=== PATIENT | female | born 1965 | race Caucasian/White ===

== ENCOUNTER 2023-02-01 07:55 | Emergency (ER) | payer BC ==
--- OUTSIDE RECORDS SUMMARY | 2023-02-01 08:00 | XMS REPORT | Continuity of Care Document ---
:1965 Author Organization [facility] t Address [address] [facility] [address] [place] [address] Care Team Providers Name Role Phone Jake Naik Attending Clinician Unavailable Richa Danielle Attending Clinician Unavailable Li Doss Attending Clinician Unavailable Payers Payer Name Policy Type Policy Number Effective Date Expiration Date S ource Blue Cross 6 [id number] Common Spiri t Blue Shield of - [facility] Problems Condition Condition Condition Status Onset Resolution Last Treating Co mments Source Name Details Category Date Date Treatment Clinician Date [id number] Iron Problem Common deficiency Spirit anemia, - [facility] type [id number] Migraine Problem Comm on without Spirit aura and - [facility] with 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 remission [facility] [id number] Seasonal Problem Comm on allergies Spirit [facility] Mitral Mitral Problem Common valve valve Spirit prolapse prolapse [facility] Mixed Mixed Problem Common hyperlipid hyperlipid Sp calvin emia emia [facility] [id number] Alcoholism Problem Comm on Spirit [facility] [id number] Hyperglyce Problem Com mon zenia Spirit [facility] [id number] Polyarthra Problem Com mon lgia Spirit [facility] [id number] Non-intrac Problem Com mon table [facility] type [id number] Allergic Problem Comm on conjunctiv Spirit itis of - CHI both eyes [facility] [id number] Medication Problem Co mmon monitoring [facility] encounter [facility] [id number] Nicotine Problem Commo n dependence Spirit with - [facility] d nicotine product type [id number] History of Problem Co mmon alcoholism [facility] [id number] Non-season Problem Com mon al Spirit allergic - [facility], [facility] [id number] Chest Problem Common pain, [facility] unspecie - [facility] d type [facility] [id number] Tobacco Problem Commo n abuse [facility] counseling [facility] [id number] Nosebleed Problem Com mon [facility] [id number] Left leg Problem Comm on pain [facility] [id number] Right leg Problem Com mon pain [facility] [id number] Vitamin D Problem Comm on deficiency [facility] Allergies, Adverse Reactions, Alerts Allergy Allergy Status Severity Reaction(s) Onset Inactive Treating Comm ents Source Name Type Date Date Clinician Nuris Grafffis Active swelling to C ommon h h mouth [facility] aspirin aspirin Active seizures Common [facility] tramadol tramadol Active hallucinatio Common ns [facility] [id number] Drug Active Unknown Common allergy [facility] ibuprofe ibuprofe Active seizures Comm on n n [facility] [place] Active irritability Common ast ast [facility] cat cat Active Unknown Common dander dander Spirit allergen allergen - [facility] ic ic St extract extract [facility] / cat / cat Medical skin skin Center extract extract Social History Social Habit Start Date Stop Date Quantity Comments Source History of Tobacco Current Smoker Co mmon Spirit - [facility] Use [facility] Sex Assigned At Com mon [facility] Smoking Status Start Date Stop Date Source Current Smoker 2022-08-16 00:00:00 Common Spiri t [facility] Medications Ordered Filled Start Stop Current Ordering Indication Dosage Frequency Signature Comments Components Source Medication Medication Date Date Medication? Clinician (SIG) Name Name Krystyna Greenwood No Atorvastat n Calcium n Calcium 8-22 in Calcium 10 MG 10 MG 00:00: 10 MG 00 Atorvastati Atorvastati 0 No Atorvastat n Calcium n Calcium 8-22 in Calcium 10 MG 10 MG 00:00: 10 MG 00 Azithromyci Azithromyci 0 2021- No QD Azithromyc n 250 MG n 250 MG 03-27 in 250 MG 00:00: 00:00 00 :00 Azithromyci Azithromyci 0 2021- No QD Azithromyc n 250 MG n 250 MG 03-27 in 250 MG 00:00: 00:00 00 :00 Acetaminoph Acetaminoph 2021-0 No 1{table QD en-Codeine en-Codeine 2-08 t_as_ne #3 300-30 #3 300-30 00:00: eded} MG MG 00 Ondansetron Ondansetron 0 No HCl 4 MG HCl 4 MG 2-08 00:00: 00 Ondansetron Ondansetron 2021-0 No Ondansetro HCl 4 MG HCl 4 MG 2-08 n HCl 4 MG 00:00: 00 Ondansetron Ondansetron 2021-0 No Ondansetro HCl 4 MG HCl 4 MG 2-08 n HCl 4 MG 00:00: 00 Ondansetron Ondansetron 2021-0 No Ondansetro HCl 4 MG HCl 4 MG 2-08 n HCl 4 MG 00:00: 00 Ondansetron Ondansetron 2021-0 No Ondansetro HCl 4 MG HCl 4 MG 2-08 n HCl 4 MG 00:00: 00 Ondansetron Ondansetron 2021-0 No Ondansetro HCl 4 MG HCl 4 MG 2-08 n HCl 4 MG 00:00: 00 Ondansetron Ondansetron 2021-0 No Ondansetro HCl 4 MG HCl 4 MG 2-08 n HCl 4 MG 00:00: 00 Sulfamethox Sulfamethox 2021-0 2022- No 1{table BID azole-Trime azole-Trime 2-08 02-18 t} thoprim thoprim 00:00: 00:00 800-160 MG 800-160 MG 00 :00 Ondansetron Ondansetron 2020-0 Yes Li 1 tablet Common HCl HCl 4-07 Millender as needed Spiri t 00:00: for - CHI 00 nausea/vom [facility] Ondansetron Ondansetron 2020-0 No Ondansetro HCl 4 MG HCl 4 MG 4-07 n HCl 4 MG 00:00: 00 Ondansetron Ondansetron 2020-0 No HCl 4 MG HCl 4 MG 4-07 00:00: 00 Ondansetron Ondansetron 2020-0 No Ondansetro HCl 4 MG HCl 4 MG 4-07 n HCl 4 MG 00:00: 00 Ondansetron Ondansetron 2020-0 No Ondansetro HCl 4 MG HCl 4 MG 4-07 n HCl 4 MG 00:00: 00 Ondansetron Ondansetron 2020-0 No Ondansetro HCl 4 MG HCl 4 MG 4-07 n HCl 4 MG 00:00: 00 Ondansetron Ondansetron 2020-0 No Ondansetro HCl 4 MG HCl 4 MG 4-07 n HCl 4 MG 00:00: 00 Ondansetron Ondansetron 2020-0 No Ondansetro HCl 4 MG HCl 4 MG 4-07 n HCl 4 MG 00:00: 00 Ondansetron Ondansetron 2020-0 No Ondansetro HCl 4 MG HCl 4 MG 4-07 n HCl 4 MG 00:00: 00 Ondansetron Ondansetron 2020-0 No Ondansetro HCl 4 MG HCl 4 MG 4-07 n HCl 4 MG 00:00: 00 Fish Oil Fish Oil 2019-0 2020- No Li 1 capsule Common 4-07 01-02 Mill[facility] Spirit 00:00: 00:00 - [facility]I 00 :00 [facility] Cromolymalick Drapermolyn 2019-0 Yes Li 1 drop Co mmon Sodium Sodium 4-30 Millender into Spirit 00:00: affected - CHI 00 eye(s) [facility] Cromolyn Cromolyn 2019-0 No QID Cromolyn Sodium 4 % Sodium 4 % 4-30 Sodium 4 % 00:00: 00 Cromolyn Cromolyn 2019-0 No QID Sodium 4 % Sodium 4 % 4-30 00:00: 00 Cromolyn Cromolyn 2019-0 No QID Cromolyn Sodium 4 % Sodium 4 % 4-30 Sodium 4 % 00:00: 00 Cromolyn Cromolyn 2019-0 No QID Cromolyn Sodium 4 % Sodium 4 % 4-30 Sodium 4 % 00:00: 00 Cromolyn Cromolyn 2019-0 No QID Cromolyn Sodium 4 % Sodium 4 % 4-30 Sodium 4 % 00:00: 00 Cromolyn Cromolyn 2019-0 No QID Cromolyn Sodium 4 % Sodium 4 % 4-30 Sodium 4 % 00:00: 00 Cromolyn Cromolyn 2019-0 No QID Cromolyn Sodium 4 % Sodium 4 % 4-30 Sodium 4 % 00:00: 00 Cromolyn Cromolyn 2019-0 No QID Cromolyn Sodium 4 % Sodium 4 % 4-30 Sodium 4 % 00:00: 00 Butalbital- Butalbital- Yes Li 1 capsule Common APAP-Caff-C APAP-Caff-C Millender as needed Spirit od od - [facility] Benadryl Benadryl Yes Li 1 tablet Co mmon Allergy Allergy Millender as needed [facility] Fluticasone Fluticasone Yes Li 1 spray in Common Propionate Propionate Millender each Spirit nostril [facility] Fish Oil Fish Oil Yes Li 1 capsule C ommon Millender [facility] B12 Fast B12 Fast Yes Li as Common Dissolve Dissolve Millender directed [facility] Loratadine Loratadine Yes Li [address] [facility] Potassium Potassium Yes Li not Comm on Millender defined [facility] Pravastatin Pravastatin Yes Li 1 tablet Common Sodium Sodium Millender for high Sp calvin cholestero - [facility] l/triglyce [facility] Potassium Potassium Yes Li 1 packet Common Chloride Chloride Millender with food [facility] Vitamin C Vitamin C Yes Li 1 tablet Common Mill[facility] Spirit [facility] Vitamin E Vitamin E Yes Li [address] [facility] Vitamin E Vitamin E No 1{capsu Vitamin E 1000 UNIT 1000 UNIT le} 1000 UNIT Vitamin C Vitamin C No 1{table Vitamin C 1000 MG 1000 MG t} 1000 MG B12 Fast B12 Fast No B12 Fast Dissolve Dissolve Dissolve 5000 MCG 5000 MCG 5000 MCG Fish Oil Fish Oil No 1{capsu Fish Oil 1200 MG 1200 MG le} 1200 MG Loratadine Loratadine No 1{table QD Loratadine 10 MG 10 MG t} 10 MG Acetaminoph Acetaminoph No 1{table QD Acetaminop en-Codeine en-Codeine t_as_ne hen-Codein #3 300-30 #3 300-30 eded} e #3 MG MG 300-30 MG Butalbital- Butalbital- No 1{capsu Butalbital APAP-Caff-C APAP-Caff-C le_as_n -APAP-Caff od od eeded} -Cod 50-325-40-3 50-325-40-3 50-325-40- 0 MG 0 MG 30 MG Fluticasone Fluticasone No 1{spray QD Fluticason Propionate Propionate _in_eac e 50 MCG/ACT 50 MCG/ACT h_nostr Propionate il} 50 MCG/ACT Fish Oil Fish Oil No 1{capsu Fish Oil 1200 MG 1200 MG le} 1200 MG Benadryl Benadryl No 1{table TID Benadryl Allergy 25 Allergy 25 t_as_ne Allergy 25 MG MG eded} MG Pravastatin Pravastatin No Pravastati Sodium 10 Sodium 10 n Sodium MG MG 10 MG Cyclobenzap Cyclobenzap No QD Cyclobenza rine HCl 10 rine HCl 10 elizabeth HCl MG MG 10 MG Potassium Potassium No Potassium Potassium Potassium No 1{packe Potassium Chloride 20 Chloride 20 t_with_ Chloride MEQ MEQ food} 20 MEQ Benadryl Benadryl No 1{table TID Allergy 25 Allergy 25 t_as_ne MG MG eded} Fish Oil Fish Oil No 1{capsu 1200 MG 1200 MG le} Fluticasone Fluticasone No 1{spray QD Propionate Propionate _in_eac 50 MCG/ACT 50 MCG/ACT h_nostr il} Cyclobenzap Cyclobenzap No QD rine HCl 10 rine HCl 10 MG MG Loratadine Loratadine No 1{table QD 10 MG 10 MG t} Vitamin C Vitamin C No 1{table 1000 MG 1000 MG t} B12 Fast B12 Fast No Dissolve Dissolve 5000 MCG 5000 MCG Potassium Potassium No 1{packe Chloride 20 Chloride 20 t_with_ MEQ MEQ food} Pravastatin Pravastatin No Sodium 10 Sodium 10 MG MG Stool Stool No Softener Softener Butalbital- Butalbital- No 1{capsu APAP-Caff-C APAP-Caff-C le_as_n od od eeded} 50-325-40-3 50-325-40-3 0 MG 0 MG Pravastatin Pravastatin No Sodium 10 Sodium 10 MG MG Vitamin E Vitamin E No 1{capsu 1000 UNIT 1000 UNIT le} Fish Oil Fish Oil No 1{capsu 1200 MG 1200 MG le} Potassium Potassium No Fish Oil Fish Oil No 1{capsu Fish Oil 1200 MG 1200 MG le} 1200 MG Benadryl Benadryl No 1{table TID Benadryl Allergy 25 Allergy 25 t_as_ne Allergy 25 MG MG eded} MG Pravastatin Pravastatin No Pravastati Sodium 10 Sodium 10 n Sodium MG MG 10 MG Fish Oil Fish Oil No 1{capsu Fish Oil 1200 MG 1200 MG le} 1200 MG Loratadine Loratadine No 1{table QD Loratadine 10 MG 10 MG t} 10 MG Fluticasone Fluticasone No 1{spray QD Fluticason Propionate Propionate _in_eac e 50 MCG/ACT 50 MCG/ACT h_nostr Propionate il} 50 MCG/ACT Stool Stool No Stool Softener Softener Softener B12 Fast B12 Fast No B12 Fast Dissolve Dissolve Dissolve 5000 MCG 5000 MCG 5000 MCG Acetaminoph Acetaminoph No 1{table QD Acetaminop en-Codeine en-Codeine t_as_ne hen-Codein #3 300-30 #3 300-30 eded} e #3 MG MG 300-30 MG Vitamin C Vitamin C No 1{table Vitamin C 1000 MG 1000 MG t} 1000 MG Potassium Potassium No Potassium Pravastatin Pravastatin No Pravastati Sodium 10 Sodium 10 n Sodium MG MG 10 MG Cyclobenzap Cyclobenzap No QD Cyclobenza rine HCl 10 rine HCl 10 elizabeth HCl MG MG 10 MG Butalbital- Butalbital- No 1{capsu Butalbital APAP-Caff-C APAP-Caff-C le_as_n -APAP-Caff od od eeded} -Cod 50-325-40-3 50-325-40-3 50-325-40- 0 MG 0 MG 30 MG Vitamin E Vitamin E No 1{capsu Vitamin E 1000 UNIT 1000 UNIT le} 1000 UNIT Potassium Potassium No 1{packe Potassium Chloride 20 Chloride 20 t_with_ Chloride MEQ MEQ food} 20 MEQ Potassium Potassium No Potassium Pravastatin Pravastatin No Pravastati Sodium 10 Sodium 10 n Sodium MG MG 10 MG Pravastatin Pravastatin No Pravastati Sodium 10 Sodium 10 n Sodium MG MG 10 MG Potassium Potassium No 1{packe Potassium Chloride 20 Chloride 20 t_with_ Chloride MEQ MEQ food} 20 MEQ Fluticasone Fluticasone No 1{spray QD Fluticason Propionate Propionate _in_eac e 50 MCG/ACT 50 MCG/ACT h_nostr Propionate il} 50 MCG/ACT Acetaminoph Acetaminoph No 1{table QD Acetaminop en-Codeine en-Codeine t_as_ne hen-Codein #3 300-30 #3 300-30 eded} e #3 MG MG 300-30 MG Cyclobenzap Cyclobenzap No QD Cyclobenza rine HCl 10 rine HCl 10 elizabeth HCl MG MG 10 MG Stool Stool No Stool Softener Softener Softener Vitamin C Vitamin C No 1{table Vitamin C 1000 MG 1000 MG t} 1000 MG Vitamin E Vitamin E No 1{capsu Vitamin E 1000 UNIT 1000 UNIT le} 1000 UNIT Butalbital- Butalbital- No 1{capsu Butalbital APAP-Caff-C APAP-Caff-C le_as_n -APAP-Caff od od eeded} -Cod 50-325-40-3 50-325-40-3 50-325-40- 0 MG 0 MG 30 MG B12 Fast B12 Fast No B12 Fast Dissolve Dissolve Dissolve 5000 MCG 5000 MCG 5000 MCG Loratadine Loratadine No 1{table QD Loratadine 10 MG 10 MG t} 10 MG Fish Oil Fish Oil No 1{capsu Fish Oil 1200 MG 1200 MG le} 1200 MG Fish Oil Fish Oil No 1{capsu Fish Oil 1200 MG 1200 MG le} 1200 MG Benadryl Benadryl No 1{table TID Benadryl Allergy 25 Allergy 25 t_as_ne Allergy 25 MG MG eded} MG Potassium Potassium No Potassium Pravastatin Pravastatin No Pravastati Sodium 10 Sodium 10 n Sodium MG MG 10 MG Pravastatin Pravastatin No Pravastati Sodium 10 Sodium 10 n Sodium MG MG 10 MG Potassium Potassium No 1{packe Potassium Chloride 20 Chloride 20 t_with_ Chloride MEQ MEQ food} 20 MEQ Fluticasone Fluticasone No 1{spray QD Fluticason Propionate Propionate _in_eac e 50 MCG/ACT 50 MCG/ACT h_nostr Propionate il} 50 MCG/ACT Acetaminoph Acetaminoph No 1{table QD Acetaminop en-Codeine en-Codeine t_as_ne hen-Codein #3 300-30 #3 300-30 eded} e #3 MG MG 300-30 MG Cyclobenzap Cyclobenzap No QD Cyclobenza rine HCl 10 rine HCl 10 elizabeth HCl MG MG 10 MG Stool Stool No Stool Softener Softener Softener Vitamin C Vitamin C No 1{table Vitamin C 1000 MG 1000 MG t} 1000 MG Vitamin E Vitamin E No 1{capsu Vitamin E 1000 UNIT 1000 UNIT le} 1000 UNIT Butalbital- Butalbital- No 1{capsu Butalbital APAP-Caff-C APAP-Caff-C le_as_n -APAP-Caff od od eeded} -Cod 50-325-40-3 50-325-40-3 50-325-40- 0 MG 0 MG 30 MG B12 Fast B12 Fast No B12 Fast Dissolve Dissolve Dissolve 5000 MCG 5000 MCG 5000 MCG Loratadine Loratadine No 1{table QD Loratadine 10 MG 10 MG t} 10 MG Fish Oil Fish Oil No 1{capsu Fish Oil 1200 MG 1200 MG le} 1200 MG Fish Oil Fish Oil No 1{capsu Fish Oil 1200 MG 1200 MG le} 1200 MG Benadryl Benadryl No 1{table TID Benadryl Allergy 25 Allergy 25 t_as_ne Allergy 25 MG MG eded} MG Fluticasone Fluticasone No 1{spray QD Fluticason Propionate Propionate _in_eac e 50 MCG/ACT 50 MCG/ACT h_nostr Propionate il} 50 MCG/ACT Stool Stool No Stool Softener Softener Softener B12 Fast B12 Fast No B12 Fast Dissolve Dissolve Dissolve 5000 MCG 5000 MCG 5000 MCG Iron Iron No Iron Potassium Potassium No 1{packe Potassium Chloride 20 Chloride 20 t_with_ Chloride MEQ MEQ food} 20 MEQ Fish Oil Fish Oil No 1{capsu Fish Oil 1200 MG 1200 MG le} 1200 MG Butalbital- Butalbital- No 1{capsu Butalbital APAP-Caff-C APAP-Caff-C le_as_n -APAP-Caff od od eeded} -Cod 50-325-40-3 50-325-40-3 50-325-40- 0 MG 0 MG 30 MG Vitamin E Vitamin E No 1{capsu Vitamin E 1000 UNIT 1000 UNIT le} 1000 UNIT Benadryl Benadryl No 1{table TID Benadryl Allergy 25 Allergy 25 t_as_ne Allergy 25 MG MG eded} MG Potassium Potassium No Potassium Acetaminoph Acetaminoph No 1{table QD Acetaminop en-Codeine en-Codeine t_as_ne hen-Codein #3 300-30 #3 300-30 eded} e #3 MG MG 300-30 MG Vitamin C Vitamin C No 1{table Vitamin C 1000 MG 1000 MG t} 1000 MG Cyclobenzap Cyclobenzap No QD Cyclobenza rine HCl 10 rine HCl 10 elizabeth HCl MG MG 10 MG Pravastatin Pravastatin No Pravastati Sodium 10 Sodium 10 n Sodium MG MG 10 MG Loratadine Loratadine No 1{table QD Loratadine 10 MG 10 MG t} 10 MG Fish Oil Fish Oil No 1{capsu Fish Oil 1200 MG 1200 MG le} 1200 MG Fish Oil Fish Oil No 1{capsu Fish Oil 1200 MG 1200 MG le} 1200 MG Butalbital- Butalbital- No 1{capsu Butalbital APAP-Caff-C APAP-Caff-C le_as_n -APAP-Caff od od eeded} -Cod 50-325-40-3 50-325-40-3 50-325-40- 0 MG 0 MG 30 MG Vitamin C Vitamin C No 1{table Vitamin C 1000 MG 1000 MG t} 1000 MG Potassium Potassium No Potassium Pravastatin Pravastatin No Pravastati Sodium 10 Sodium 10 n Sodium MG MG 10 MG Iron Iron No Iron Stool Stool No Stool Softener Softener Softener Vitamin E Vitamin E No 1{capsu Vitamin E 1000 UNIT 1000 UNIT le} 1000 UNIT Potassium Potassium No 1{packe Potassium Chloride 20 Chloride 20 t_with_ Chloride MEQ MEQ food} 20 MEQ Acetaminoph Acetaminoph No 1{table QD Acetaminop en-Codeine en-Codeine t_as_ne hen-Codein #3 300-30 #3 300-30 eded} e #3 MG MG 300-30 MG Fluticasone Fluticasone No 1{spray QD Fluticason Propionate Propionate _in_eac e 50 MCG/ACT 50 MCG/ACT h_nostr Propionate il} 50 MCG/ACT Loratadine Loratadine No 1{table QD Loratadine 10 MG 10 MG t} 10 MG Fish Oil Fish Oil No 1{capsu Fish Oil 1200 MG 1200 MG le} 1200 MG Benadryl Benadryl No 1{table TID Benadryl Allergy 25 Allergy 25 t_as_ne Allergy 25 MG MG eded} MG B12 Fast B12 Fast No B12 Fast Dissolve Dissolve Dissolve 5000 MCG 5000 MCG 5000 MCG Cyclobenzap Cyclobenzap No QD Cyclobenza rine HCl 10 rine HCl 10 elizabeth HCl MG MG 10 MG Potassium Potassium No 1{packe Potassium Chloride 20 Chloride 20 t_with_ Chloride MEQ MEQ food} 20 MEQ Loratadine Loratadine No 1{table QD Loratadine 10 MG 10 MG t} 10 MG Atorvastati Atorvastati No Atorvastat n Calcium n Calcium in Calcium 10 MG 10 MG 10 MG Cyclobenzap Cyclobenzap No QD Cyclobenza rine HCl 10 rine HCl 10 elizabeth HCl MG MG 10 MG Iron Iron No Iron B12 Fast B12 Fast No B12 Fast Dissolve Dissolve Dissolve 5000 MCG 5000 MCG 5000 MCG Cromolyn Cromolyn No Cromolyn Sodium 4 % Sodium 4 % Sodium 4 % Fish Oil Fish Oil No 1{capsu Fish Oil 1200 MG 1200 MG le} 1200 MG Pravastatin Pravastatin No Pravastati Sodium 10 Sodium 10 n Sodium MG MG 10 MG Vitamin E Vitamin E No 1{capsu Vitamin E 1000 UNIT 1000 UNIT le} 1000 UNIT Potassium Potassium No Potassium Acetaminoph Acetaminoph No 1{table QD Acetaminop en-Codeine en-Codeine t_as_ne hen-Codein #3 300-30 #3 300-30 eded} e #3 MG MG 300-30 MG Fluticasone Fluticasone No 1{spray QD Fluticason Propionate Propionate _in_eac e 50 MCG/ACT 50 MCG/ACT h_nostr Propionate il} 50 MCG/ACT Benadryl Benadryl No 1{table TID Benadryl Allergy 25 Allergy 25 t_as_ne Allergy 25 MG MG eded} MG Butalbital- Butalbital- No 1{capsu Butalbital APAP-Caff-C APAP-Caff-C le_as_n -APAP-Caff od od eeded} -Cod 50-325-40-3 50-325-40-3 50-325-40- 0 MG 0 MG 30 MG Vitamin C Vitamin C No 1{table Vitamin C 1000 MG 1000 MG t} 1000 MG Stool Stool No Stool Softener Softener Softener Fish Oil Fish Oil No 1{capsu Fish Oil 1200 MG 1200 MG le} 1200 MG Vitamin E Vitamin E No 1{capsu Vitamin E 1000 UNIT 1000 UNIT le} 1000 UNIT Vitamin C Vitamin C No 1{table Vitamin C 1000 MG 1000 MG t} 1000 MG B12 Fast B12 Fast No B12 Fast Dissolve Dissolve Dissolve 5000 MCG 5000 MCG 5000 MCG Fish Oil Fish Oil No 1{capsu Fish Oil 1200 MG 1200 MG le} 1200 MG Loratadine Loratadine No 1{table QD Loratadine 10 MG 10 MG t} 10 MG Acetaminoph Acetaminoph No 1{table QD Acetaminop en-Codeine en-Codeine t_as_ne hen-Codein #3 300-30 #3 300-30 eded} e #3 MG MG 300-30 MG Butalbital- Butalbital- No 1{capsu Butalbital APAP-Caff-C APAP-Caff-C le_as_n -APAP-Caff od od eeded} -Cod 50-325-40-3 50-325-40-3 50-325-40- 0 MG 0 MG 30 MG Fluticasone Fluticasone No 1{spray QD Fluticason Propionate Propionate _in_eac e 50 MCG/ACT 50 MCG/ACT h_nostr Propionate il} 50 MCG/ACT Fish Oil Fish Oil No 1{capsu Fish Oil 1200 MG 1200 MG le} 1200 MG Benadryl Benadryl No 1{table TID Benadryl Allergy 25 Allergy 25 t_as_ne Allergy 25 MG MG eded} MG Pravastatin Pravastatin No Pravastati Sodium 10 Sodium 10 n Sodium MG MG 10 MG Cyclobenzap Cyclobenzap No QD Cyclobenza rine HCl 10 rine HCl 10 elizabeth HCl MG MG 10 MG Potassium Potassium No Potassium Potassium Potassium No 1{packe Potassium Chloride 20 Chloride 20 t_with_ Chloride MEQ MEQ food} 20 MEQ Immunizations Ordered Immunization Filled Immunization Date Status Commen ts Source Name Name Adacel (Tdap) Adacel (Tdap) 2018-10-01 Completed Common S pirit 10:19:00 - [facility] Adacel (Tdap) Adacel (Tdap) 2018-10-01 Completed Common S pirit 10:19:00 - [facility] Adacel (Tdap) Adacel (Tdap) 2018-10-01 Completed Common S pirit 10:19:00 - [facility] Adacel (Tdap) Adacel (Tdap) 2018-10-01 Completed Common S pirit 10:19:00 - [facility] Adacel (Tdap) Adacel (Tdap) 2018-10-01 Completed Common S pirit 10:19:00 - [facility] Adacel (Tdap) Adacel (Tdap) 2018-10-01 Completed Common S pirit 10:19:00 - [facility] Adacel (Tdap) Adacel (Tdap) 2018-10-01 Completed Common S pirit 10:19:00 - [facility] Adacel (Tdap) Adacel (Tdap) 2018-10-01 Completed Common S pirit 10:19:00 - [facility] Adacel (Tdap) Adacel (Tdap) 2018-10-01 Completed Common S pirit 10:19:00 - [facility] TDAP > 7 TDAP > 7 2018-10-01 Completed Common Spirit Years-Adacel Years-Adacel 00:00:00 - [facility] Vital Signs Vital Name Observation Time Observation Value Comments Source height 2022-08-19 08:50:00 64 [in_i] Common S pirit - [facility] weight 2022-08-19 08:50:00 167.1 [lb_av] Common [facility] temperature 2022-08-19 08:50:00 97.2 [degF] Common [facility] bmi 2022-08-19 08:50:00 28.68 kg/m2 Common S [facility] oximetry 2022-08-19 08:50:00 98 % [facility] 2022-08-19 08:50:00 17 /min Comm on [facility] blood pressure 2022-08-19 08:50:00 117 mm[Hg] Common [facility] - systolic [facility] blood pressure 2022-08-19 08:50:00 71 mm[Hg] Common [facility] - diastolic [facility] height 2022-05-13 09:10:00 64 [in_i] Common [facility] weight 2022-05-13 09:10:00 161.4 [lb_av] Common [facility] temperature 2022-05-13 09:10:00 97.2 [degF] Common [facility] bmi 2022-05-13 09:10:00 27.7 kg/m2 Common S [facility] oximetry 2022-05-13 09:10:00 95 % Common [facility] respiratory rate 2022-05-13 09:10:00 16 /min Comm on [facility] blood pressure 2022-05-13 09:10:00 130 mm[Hg] Common [facility] - systolic [facility] blood pressure 2022-05-13 09:10:00 68 mm[Hg] Common Spirit - diastolic [facility] height 2022-03-27 10:40:00 64 [in_i] [facility] 2022-03-27 10:40:00 166.1 [lb_av] [facility] temperature 2022-03-27 10:40:00 100.4 [degF] [facility] bmi 2022-03-27 10:40:00 28.51 kg/m2 [facility] height 2022-01-31 08:40:00 64 [in_i] Common [facility] weight 2022-01-31 08:40:00 166.1 [lb_av] Common [facility] temperature 2022-01-31 08:40:00 98.1 [degF] Common [facility] bmi 2022-01-31 08:40:00 28.51 kg/m2 Common [facility] oximetry 2022-01-31 08:40:00 99 % Common [facility] respiratory rate 2022-01-31 08:40:00 18 /min Comm on [facility] blood pressure 2022-01-31 08:40:00 137 mm[Hg] Common [facility] - systolic [facility] blood pressure 2022-01-31 08:40:00 74 mm[Hg] Common [facility] - diastolic [facility] height 2021-10-30 08:10:00 64 [in_i] Common [facility] weight 2021-10-30 08:10:00 163.4 [lb_av] [facility] temperature 2021-10-30 08:10:00 98.1 [degF] Common [facility] bmi 2021-10-30 08:10:00 28.04 kg/m2 Common S [facility] oximetry 2021-10-30 08:10:00 100 % Common [facility] respiratory rate 2021-10-30 08:10:00 18 /min Comm on [facility] blood pressure 2021-10-30 08:10:00 130 mm[Hg] Common [facility] - systolic [facility] blood pressure 2021-10-30 08:10:00 79 mm[Hg] Common [facility] - diastolic [facility] height 2021-06-26 08:20:00 64 [in_i] [facility] weight 2021-06-26 08:20:00 162.7 [lb_av] Common [facility] temperature 2021-06-26 08:20:00 97.7 [degF] [facility] bmi 2021-06-26 08:20:00 27.92 kg/m2 [facility] oximetry 2021-06-26 08:20:00 98 % [facility] respiratory rate 2021-06-26 08:20:00 16 /min Comm on [facility] blood pressure 2021-06-26 08:20:00 131 mm[Hg] Common [facility] systolic [facility] blood pressure 2021-06-26 08:20:00 78 mm[Hg] Common [facility] diastolic [facility] Procedures This patient has no known procedures. Encounters Start End Encounter Admission Attending Care Care Encounter Source Date/Time Date/Time Type Type Clinicians Facility Department ID 2022-11-12 Outpatient Naik, STLMLC STLMLC [id number] Common 08:05:[id number] [facility] 2022-08-14 Outpatient Naik, STLMLC STLMLC [id number] Common 07:46:[id number] [facility] 2022-03-27 Outpatient Naik, STLMLC STLMLC [id number] Common 13:24:[id number] [facility] 2021-10-17 Outpatient Naik, STLMLC STLMLC [id number] Common 13:07:[id number] [facility] 2021-10-17 Outpatient Naik, STLMLC STLMLC [id number] Common 13:06:[id number] [facility] 2021-10-17 Outpatient Naik, STLMLC STLMLC [id number] Common 13:00:[id number] [facility] 2021-10-17 Outpatient Naik, STLMLC STLMLC [id number] Common 12:32:[id number] [facility] 2021-10-17 Outpatient Naik, STLMLC STLMLC [id number] Common 12:20:[id number] [facility] 2021-10-17 Outpatient Ovalo, STLMLC STLMLC [id number] Common 12:17:[id number] [facility] 2021-10-17 Outpatient Millender, STLMLC STLMLC [id number] Common 11:52:[id number] [facility] 2021-10-17 Outpatient Millender, STLMLC STLMLC [id number] Common 11:00:[id number] [facility] 2021-10-17 Outpatient Millender, STLMLC STLMLC [id number] Common 10:59:[id number] [facility] 2021-10-17 Outpatient Millender, STLMLC STLMLC [id number] Common 10:58:[id number] [facility] 2022-08-19 2022-08-19 OFFICE STLMLC STLMLC [id number] Co mmon 00:00:00 00:00:00 VISIT [facility] PT - CHI LEVEL 4 [facility] 2022-05-15 2022-05-15 (TEL) STLMLC STLMLC [id number] Co mmon 00:00:00 00:00:00 [facility] 2022-05-13 2022-05-13 OFFICE STLMLC STLMLC [id number] Co mmon 00:00:00 00:00:00 VISIT [facility] ESTAB PT - CHI LEVEL 4 [facility] 2022-03-27 2022-03-27 OL DIG E/M STLMLC STLMLC [id number] Common 00:00:00 00:00:00 [facility] 11-20 Spir it MIN [facility] 2022-03-27 2022-03-27 (TEL) STLMLC STLMLC [id number] Co mmon 00:00:00 00:00:00 [facility] 2022-01-31 2022-01-31 OFFICE STLMLC STLMLC [id number] Co mmon 00:00:00 00:00:00 VISIT [facility] ESTAB PT - CHI LEVEL 4 [facility] 2021-10-30 2021-10-30 (WELLNESS) STLMLC STLMLC [id number] Common 00:00:00 00:00:00 Wellness Spiri t Visit [facility] 2021-06-26 2021-06-26 OFFICE STLMLC STLMLC [id number] Co mmon 00:00:00 00:00:00 VISIT [facility] ESTAB PT - CHI LEVEL 4 [facility] 2021-06-26 2021-06-26 (TEL) STLMLC STLMLC [id number] Co mmon 00:00:00 00:00:00 [facility] 2021-05-02 2021-05-02 Outpatient STLMLC STLMLC [id number] Common 00:00:00 00:00:00 [facility] 2021-02-13 2021-02-13 Outpatient STLMLC STLMLC [id number] Common 00:00:00 00:00:00 [facility] 2021-02-05 2021-02-05 Outpatient STLMLC STLMLC [id number] Common 00:00:00 00:00:00 [facility] 2021-01-26 2021-01-26 Outpatient STLMLC STLMLC [id number] Common 00:00:00 00:00:00 [facility] 2020-12-04 2020-12-04 Outpatient STLMLC STLMLC [id number] Common 00:00:00 00:00:00 [facility] 2020-11-23 2020-11-23 Outpatient STLMLC STLMLC [id number] Common 00:00:00 00:00:00 [facility] 2020-11-14 2020-11-14 Outpatient STLMLC STLMLC [id number] Common 00:00:00 00:00:00 [facility] 2020-10-05 2020-10-05 Outpatient STLMLC STLMLC [id number] Common 00:00:00 00:00:00 [facility] 2020-09-25 2020-09-25 Outpatient STLMLC STLMLC [id number] Common 00:00:00 00:00:00 [facility] 2020-07-17 2020-07-17 Outpatient STLMLC STLMLC [id number] Common 00:00:00 00:00:00 [facility] 2020-06-30 2020-06-30 Outpatient STLMLC STLMLC [id number] Common 00:00:00 00:00:00 [facility] 2020-04-16 2020-04-16 [facility] [id number] Common 22:55:00 22:55:[address] [facility] 2020-03-31 2020-03-31 [facility] [id number] Common 08:20:00 08:20:[address] [facility] 2020-03-21 2020-03-21 [facility] [id number] Common 09:01:00 09:01:[address] [facility] 2019-12-28 2019-12-28 [facility] [id number] Common 15:45:00 15:45:[address] [facility] 2019-12-25 2019-12-25 [facility] [id number] Common 21:51:00 21:51:[address] [facility] 2019-12-24 2019-12-24 [facility] [id number] Common 15:00:00 15:00:[address] [facility] 2019-11-11 2019-11-11 [facility] [id number] Common 08:40:00 08:40:[address] [facility] 2019-10-03 2019-10-03 [facility] [id number] Common 22:25:00 22:25:[address] [facility] 2019-09-30 2019-09-30 [facility] [id number] Common 08:30:00 08:30:[address] [facility] 2019-04-23 2019-04-23 [facility] [id number] Common 10:56:00 10:56:[address] [facility] 2019-03-30 2019-03-30 [facility] [id number] Common 08:30:00 08:30:[address] [facility] 2019-01-22 2019-01-22 [facility] [id number] Common 09:00:00 09:00:[address] [facility] 2019-01-21 2019-01-21 [facility] [id number] Common 14:52:00 14:52:[address] [facility] 2019-01-19 2019-01-19 [facility] [id number] Common 13:34:00 13:34:[address] [facility] 2019-01-19 2019-01-19 [facility] [id number] Common 09:30:00 09:30:[address] [facility] 2018-10-01 2018-10-01 [facility] [id number] Common 08:45:00 08:45:[address] [facility] Results Test Description Test Time Test Comments Results Result Comments Source STREP Joanne ORNELAS 2022-03-27 00:00:00 Test Item Value Reference Range Interpretation Comme nts Result (test code = 52330-6) Negative POC, COVID 19 Antigen + Flu by SofiaPOC, COVID 19 Antigen + Flu by Gregoria
[2023-02-01] MEDS ORDERED: LEVALBUTEROL 1.25 MG/3 ML NEB ONE (08:27)
[2023-02-01] MEDS ORDERED: ACETAMINOPHEN 325 MG TABLET ONE (08:27)
--- NOTE | 2023-02-01 09:17 | RAD REPORT ---
EXAM DESCRIPTION: RAD - Chest Pa And Lat (2 Views) - 02/01/2023 9:10 am CLINICAL HISTORY: COUGH COMPARISON: <Comparisons> FINDINGS: Lines: None. Lungs: No evidence of edema or pneumonia. Pleural: No significant pleural effusions or pneumothorax. Cardiac: The heart size is within normal limits. Mediastinum: Within normal limits. Bones: No acute fractures. Other: None IMPRESSION: No acute cardiopulmonary disease.
--- NOTE | 2023-02-01 09:59 | ER ---
Nurse's Notes [facility] Name: Yoselin Santos Age: 57 yrs Sex: Female : 1965 Arrival Date: 02/01/2023 Time: 07:55 Bed 14 Private MD: Diagnosis: Otitis media, unspecified, bilateral;Cough;Nasal congestion;Acute pharyngitis, unspecified Presentation: 02/01 08:07 Chief complaint: Cough, congestion, sore throat, malaise, and subjective fever x 1 hb week, dizziness and SOB today. On Zithromax day 4. Coronavirus screen: Client presents with at least one sign or symptom that may indicate coronavirus-19. Provider contacted for isolation considerations. Ebola Screen: No symptoms or risks identified at this time. Initial Sepsis Screen: Does the patient meet any 2 criteria? No. Patient's initial sepsis screen is negative. Does the patient have a suspected source of infection? No. Patient's initial sepsis screen is negative. Risk Assessment: Do you want to hurt yourself or someone else? Patient reports no desire to harm self or others. Onset of symptoms was January 25, 2023. 08:07 Method Of Arrival: Ambulatory hb 08:07 Acuity: ANA PAULA 3 hb Historical: - Allergies: 08:09 SHELLFISH; hb 08:09 Aspirin; hb 08:09 Ibuprofen; hb 08:09 nitrofurantoin; hb 08:09 peppermint; hb - Immunization history:: Adult Immunizations up to date. - Social history:: Smoking status: . Screenin:08 [facility] ED Fall Risk Assessment (Adult) History of falling in the last 3 months, kc6 including since admission No falls in past 3 months (0 pts) Confusion or Disorientation No (0 pts) Intoxicated or Sedated No (0 pts) Impaired Gait No (0 pts) Mobility Assist Device Used No (0 pt) Altered Elimination No (0 pt) Score/Fall Risk Level 0 - 2 = Low Risk Oriented to surroundings, Maintained a safe environment, Educated pt \T\ family on fall prevention, incl call for assistance when getting out of bed, Assessed \T\ reinforced patient's understanding of fall precautions, Provided non-skid footwear, Used ambulatory aids as needed (educated on \T\ assisted with). Abuse screen: Denies threats or abuse. Denies injuries from another. Nutritional screening: No deficits noted. Tuberculosis screening: No symptoms or risk factors identified. Assessment: 08:08 General: Appears in no apparent distress. comfortable, ill, Behavior is calm, kc6 cooperative, appropriate for age. Pain: Complains of pain in right ear. Neuro: Beatty Agitation-Sedation Scale (RASS): 0 - Alert and Calm Level of Consciousness is awake, alert, obeys commands, Oriented to person, place, time, situation, Appropriate for age. Cardiovascular: Heart tones S1 S2 present Capillary refill < 3 seconds Rhythm is sinus tachycardia Chest pain is denied. Respiratory: Reports shortness of breath cough that is Airway is patent Trachea midline Respiratory effort is even, unlabored, Respiratory pattern is regular, symmetrical. GI: No signs and/or symptoms were reported involving the gastrointestinal system. : No signs and/or symptoms were reported regarding the genitourinary system. EENT: Reports nasal congestion. Derm: No signs and/or symptoms reported regarding the dermatologic system. Skin is intact, Skin is pink, warm \T\ dry. Musculoskeletal: No signs and/or symptoms reported regarding the musculoskeletal system. Circulation, motion, and sensation intact. Capillary refill < 3 seconds, Range of motion: intact in all extremities. 09:08 Reassessment: Patient appears in no apparent distress at this time. No changes from kc6 previously documented assessment. Patient and/or family updated on plan of care and expected duration. Pain level reassessed. Patient is alert, oriented x 3, equal unlabored respirations, skin warm/dry/pink. 10:05 Reassessment: Patient appears in no apparent distress at this time. No changes from kc6 previously documented assessment. Patient and/or family updated on plan of care and expected duration. Pain level reassessed. Patient is alert, oriented x 3, equal unlabored respirations, skin warm/dry/pink. Vital Signs: 08:07 BP 155 / 92; Pulse 110; Resp 20; Temp 100(O); Pulse Ox 98% ; Weight 79.38 kg; Height 5 hb ft. 4 in. ; Pain 5/10; 09:10 BP 125 / 64; Pulse 93; Resp 18 S; Pulse Ox 97% on R/A; kc6 09:55 Temp 99.5(O); kc6 08:07 Body Mass Index 30.04 (79.38 kg, 162.56 cm) hb 08:07 Pain Scale: Adult hb ED Course: 07:56 Patient arrived in ED. ts1 08:02 Chel Naidu, RN is Primary Nurse. kc6 08:03 Romulo Contreras PA is PHCP. cp 08:03 Toño Harrell MD is Attending Physician. cp 08:08 Patient has correct armband on for positive identification. Bed in low position. Call kc6 light in reach. Side rails up X 1. 08:09 Triage completed. hb 08:09 Arm band placed on. hb 09:12 XRAY Chest Pa And Lat (2 Views) In Process Unspecified. EDMS 10:05 No provider procedures requiring assistance completed. Patient did not have IV access kc6 during this emergency room visit. Administered Medications: 08:30 Drug: Levalbuterol Inhalation 1.25 mg Route: Inhalation; kc6 09:30 Follow up: Response: No adverse reaction kc6 08:30 Drug: Acetaminophen PO 650 mg Route: PO; kc6 09:59 Follow up: Response: No adverse reaction; Temperature is decreased kc6 Medication: 10:05 VIS not applicable for this client. kc6 Outcome: 09:58 Discharge ordered by . cp 10:05 Discharged to home ambulatory. kc6 10:05 Condition: stable 10:05 Discharge instructions given to patient, Instructed on discharge instructions, follow up and referral plans. medication usage, Demonstrated understanding of instructions, follow-up care, medications, Prescriptions given X 3. 10:05 Patient left the ED. kc6 Signatures: Dispatcher [employer] EDMS Romulo Contreras PA PA cp Baxter, Heather, RN RN Chel Naidu RN RN kc6 Vivian Kilgore PAS PAS ts1
--- NOTE | 2023-02-01 09:59 | EDPHYS ---
Physician Documentation [facility] Name: Yoselin Santos Age: 57 yrs Sex: Female : 1965 Arrival Date: 02/01/2023 Time: 07:55 Bed 14 Private MD: ED Physician Toño Harrell HPI: 02/01 08:20 This 57 yrs old Female presents to ER via Ambulatory with complaints of Chest cp Congestion, Dizziness. 08:20 The patient or guardian reports cough, chest congestion, difficulty breathing. cp 08:20 Onset: The symptoms/episode began/occurred 1 week(s) ago, and became worse yesterday. cp 08:20 Associated signs and symptoms: Pertinent positives: earache, fever, sore throat, cp dizziness, Pertinent negatives: chest pain, diarrhea, vomiting. Severity of symptoms: in the emergency department the symptoms are unchanged despite home interventions. 08:20 Patient reports having recent [facility] visit in which she was prescribed Z-ak, cough cp medicine. Historical: - Allergies: 08:09 SHELLFISH; hb 08:09 Aspirin; hb 08:09 Ibuprofen; hb 08:09 nitrofurantoin; hb 08:09 peppermint; hb - Immunization history:: Adult Immunizations up to date. - Social history:: Smoking status: . ROS: 08:30 Constitutional: Positive for body aches, Negative for fever, poor PO intake. cp 08:30 Eyes: Negative for injury, pain, redness, and discharge. cp 08:30 ENT: Positive for ear pain, sore throat, Negative for drainage from ear(s), difficulty swallowing, difficulty handling secretions. 08:30 Cardiovascular: Negative for chest pain, edema, palpitations. 08:30 Respiratory: Positive for cough, "sounds productive", shortness of breath. 08:30 Abdomen/GI: Negative for abdominal pain, vomiting, diarrhea, constipation. 08:30 Back: Negative for pain at rest, pain with movement. 08:30 : Negative for urinary symptoms. 08:30 Skin: Negative for rash. 08:30 Neuro: Positive for dizziness, Negative for altered mental status, headache, loss of consciousness, syncope, weakness. Exam: 08:33 Constitutional: The patient appears in no acute distress, alert, awake, cp non-diaphoretic, non-toxic, well developed, well nourished. 08:33 Head/Face: Normocephalic, atraumatic. cp 08:33 Eyes: Periorbital structures: appear normal, Conjunctiva: normal, no exudate, no injection, Sclera: no appreciated abnormality, Lids and lashes: appear normal, bilaterally. 08:33 ENT: External ear(s): are unremarkable, Ear canal(s): cerumen impaction, that is moderate, occluding the right ear canal, TM's: erythema, that is mild, bilaterally, Nose: is normal, Mouth: Lips: moist, Oral mucosa: moist, Posterior pharynx: Airway: no evidence of obstruction, patent, Tonsils: with erythema, no enlargement, no exudate, swelling, is not appreciated, erythema, that is mild, exudate, is not appreciated. 08:33 Neck: ROM/movement: is normal, is supple, without pain, no range of motions limitations, no meningismus, Lymph nodes: no appreciated lymphadenopathy. 08:33 Chest/axilla: Inspection: normal. 08:33 Cardiovascular: Rate: tachycardic, Rhythm: regular, Edema: is not appreciated, JVD: is not appreciated. 08:33 Respiratory: the patient does not display signs of respiratory distress, Respirations: normal, no use of accessory muscles, no retractions, labored breathing, is not present, Breath sounds: bronchial sounds, that are mild, are heard diffusely, decreased breath sounds, are not appreciated, stridor, is not appreciated, + upper airway congestion. wheezing: is not appreciated. 08:33 Abdomen/GI: Inspection: abdomen appears normal, Palpation: abdomen is soft and non-tender, in all quadrants. 08:33 Back: pain, is absent, ROM is normal. 08:33 Neuro: Orientation: to person, place \\T\\ time. Mentation: is normal, Motor: moves all fours, strength is normal, Sensation: is normal. Vital Signs: 08:07 BP 155 / 92; Pulse 110; Resp 20; Temp 100(O); Pulse Ox 98% ; Weight 79.38 kg; Height 5 hb ft. 4 in. ; Pain 5/10; 09:10 BP 125 / 64; Pulse 93; Resp 18 S; Pulse Ox 97% on R/A; kc6 09:55 Temp 99.5(O); kc6 08:07 Body Mass Index 30.04 (79.38 kg, 162.56 cm) hb 08:07 Pain Scale: Adult hb MDM: 07:58 Patient medically screened. bs3 09:00 Differential diagnosis: bronchitis, flu, URI, pneumonia, strep throat, influenza, cp COVID-19. 09:57 Data reviewed: vital signs, nurses notes, lab test result(s), radiologic studies, plain cp films. 09:57 Consideration of Admission/Observation Escalation of care including cp admission/observation considered. I considered the following discharge prescriptions or medication management in the emergency department Medications were administered in the Emergency Department. See MAR. Independent interpretation of the following test(s) in the Emergency Department X-Ray: My interpretation is chest images negative for focal pneumonia. Test considered but Not performed: Labs: cbc, bmp. Counseling: I had a detailed discussion with the patient and/or guardian regarding: the historical points, exam findings, and any diagnostic results supporting the discharge/admit diagnosis, lab results, radiology results, to return to the emergency department if symptoms worsen or persist or if there are any questions or concerns that arise at home. Response to treatment: the patient's symptoms have mildly improved after treatment, and as a result, I will discharge patient. 02/01 08:18 Order name: COVID-19 SARS RT PCR; Complete Time: 09:39 cp 02/01 09:40 Interpretation: Reviewed. cp 02/01 08:18 Order name: Influenza Screen (a \\T\\ B); Complete Time: 09:39 cp 02/01 09:40 Interpretation: Reviewed. cp 02/01 08:18 Order name: Strep cp 02/01 09:40 Interpretation: Reviewed. cp 02/01 08:18 Order name: RSV; Complete Time: 09:39 cp 02/01 09:40 Interpretation: Reviewed. 02/01 08:57 Order name: Throat Culture EDMS 02/01 08:18 Order name: XRAY Chest Pa And Lat (2 Views); Complete Time: 09:39 cp 02/01 09:40 Interpretation: Report reviewed. cp Administered Medications: 08:30 Drug: Levalbuterol Inhalation 1.25 mg Route: Inhalation; kc6 09:30 Follow up: Response: No adverse reaction kc6 08:30 Drug: Acetaminophen PO 650 mg Route: PO; kc6 09:59 Follow up: Response: No adverse reaction; Temperature is decreased kc6 Disposition Summary: 02/01/23 09:58 Discharge Ordered Location: Home cp Problem: new cp Symptoms: have improved cp Condition: Stable cp Diagnosis - Otitis media, unspecified, bilateral cp - Cough cp - Nasal congestion cp - Acute pharyngitis, unspecified cp Followup: cp - With: Private Physician - When: 2 - 3 days - Reason: Worsening of condition Discharge Instructions: - Otitis Media, Adult cp - Pharyngitis cp - Cough, Adult cp - Discharge Summary Sheet kc Forms: - Medication Reconciliation Form cp - Thank You Letter cp - Antibiotic Education cp - Prescription Opioid Use cp - Work release form kc6 Prescriptions: - albuterol sulfate 90 mcg/actuation Inhalation HFA Aerosol Inhaler - inhale 2 puff by INHALATION route every 6 hours As needed; 1 unit; Refills: 0, cp Product Selection Permitted - Augmentin 875-125 mg Oral Tablet - take 1 tablet by ORAL route every 12 hours for 10 days; 20 tablet; Refills: 0, cp Product Selection Permitted - Prednisone 20 mg Oral Tablet - take 2 tablets by ORAL route once daily for 5 days; 10 tablet; Refills: 0, cp Product Selection Permitted Signatures: Dispatcher [employer] EDRomulo Duvall PA PA cp Echo Weiss RN RN hb Campbell, Kaitlyn, RN RN kc6 Toño Harrell MD MD bs3
[2023-02-01 10:11] VITALS: BP 125/64; O2SAT 97
[2023-02-01 10:12] VITALS: TEMP 99.5
== END 2023-02-01 10:05 | disposition home or self-care (01) ==
LOC: ER 07:55
DX: H66.93 Otitis media, unspecified, bilateral (principal); R05.9 Cough, unspecified; R09.81 Nasal congestion; J02.9 Acute pharyngitis, unspecified; Z20.822 Contact with and (suspected) exposure to COVID-19; Z88.6 Allergy status to analgesic agent; Z88.8 Allergy status to other drugs, medicaments and biological substances; Z91.013 Allergy to seafood; Z91.048 Other nonmedicinal substance allergy status
CPT/HCPCS: 87070; 87081; 87807; 87804 ×2; 71046; 99284; U0003; J7614